=== PATIENT | male | born 2005 | race Caucasian/White ===

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

== ENCOUNTER 2023-04-02 12:25 | Emergency (ER) | payer OTHER ==
[~2023-04-02] VITALS: Ht 185.4 cm; Wt 76.0 kg
[~2023-04-02 12:25] MED LIST changes: +AMOXICILLIN875 MG PO; +COLACE100 MG PO; +HYDROCODON-ACE1 EA10 PO; +HYDROXYZINE HCL25 MG PO; +OXYCODONE HCL10 MG PO; +VENTOLIN HFA18 GM INH; +ZOLOFT50 MG PO
[2023-04-02 13:30] LABS: INFLUENZA B NAA NEGATIVE (NEGATIVE); RESPIRATORY SYNCYTIAL VIR NAA NEGATIVE (NEGATIVE)
[2023-04-02] MEDS ORDERED: PENICILLIN V P500 MG PO (13:54)
[2023-04-02] MEDS ORDERED: IBUPROFEN 600 MG TAB PO ONE (14:00)
[2023-04-02] MEDS ORDERED: LIDOCAINE & ANTACID 35 ML BTL PO ONE (14:00)
[2023-04-02] MEDS ORDERED: dexAMETHasone 4 MG TAB PO ONE (14:00)
[2023-04-02] MEDS ORDERED: PENICILLIN V POTASSIUM 500 MG TAB PO ONE (14:00)
[2023-04-02 14:09] VITALS: BP 133/66
== END 2023-04-02 14:10 | disposition home or self-care (01) ==
LOC: ED 12:25
PROVIDERS: Emergency Medicine
DX: J02.0 Streptococcal pharyngitis (principal); U07.1 COVID-19
CPT/HCPCS: 87502; 87651; 99283; A9270; J8540; U0002

== ENCOUNTER 2023-06-26 17:04 | Emergency (ER) | payer OTHER ==
[~2023-06-26] VITALS: Ht 185.4 cm; Wt 71.0 kg
[~2023-06-26 17:04] MED LIST changes: +PENICILLIN V P500 MG PO
[2023-06-26] MEDS ORDERED: ACETAMINOPHEN 500 MG TAB PO ONE (18:15)
[2023-06-26] MEDS ORDERED: IBUPROFEN 600 MG TAB PO ONE (18:15)
[2023-06-26 18:20] VITALS: BP 130/76
== END 2023-06-26 18:20 | disposition home or self-care (01) ==
LOC: ED 17:04
DX: M17.11 Unilateral primary osteoarthritis, right knee (principal); M25.461 Effusion, right knee
CPT/HCPCS: 73560; 99283-25; A9270